=== PATIENT | female | born 1965 | race Caucasian/White ===

== ENCOUNTER 2017-06-21 12:32 | Emergency (ER) | payer OTHER ==
[2017-06-21] MEDS ORDERED: fentaNYL 100 MCG/2 ML INJ IVP ONE (12:54)
[2017-06-21] MEDS ORDERED: ONDANSETRON 4 MG/2 ML VIAL IVP ONE (12:55)
--- NOTE | 2017-06-21 13:34 | CPEKG ---
Heart Rate: 74 RR Interval: 811 P-R Interval: 148 QRSD Interval: 86 QT Interval: 444 QTC Interval: 493 P Caret: 46 QRS Caret: 61 T Wave Caret: 29 EKG Severity - BORDERLINE ECG - EKG Impression: SINUS RHYTHM EKG Impression: BORDERLINE R WAVE PROGRESSION, ANTERIOR LEADS EKG Impression: BORDERLINE PROLONGED QT INTERVAL Electronically Signed By: Adarsh Webb 23-Jun-2017 15:32:10
[2017-06-21] MEDS ORDERED: HYDROmorphONE/DILAUDID 1 MG/ML SYR IVP ONE ×3 (13:36→17:56)
[2017-06-21] MEDS ORDERED: NS 1,000 ML IV ONE (13:36)
--- NOTE | 2017-06-21 13:44 | EDPHY ---
H & P Stated Complaint: Slammed in horse trailer by horse;deformity to R wrist w/ deficit Source: Patient, Family Exam Limitations: No limitations - Personal History LMP (Females 10-55): Post Menopausal Current Tetanus Diphtheria and Acellular Pertussis (TDAP): Yes - Medical/Surgical History Other PMH: healthy per pt - Social History Smoking Status: Never smoked HPI/ROS: CHIEF COMPLAINT: Slammed by horse, sternal pain, wrist pain, headache HISTORY OF PRESENT ILLNESS: Patient was in a horse trailer when the horse was startled. The horse slammed her against the trailer. She struck her head and her chest. She also struck her wrist. She is not entirely sure what happened to the wrist. She has severe pain in the right wrist. Mild headache. Moderate pain in the sternum. The pain of the sternum is worse with any kind of palpation or inspiration. The pain in the wrist is severe and unable to move her bear weight. The headache is minimal. No neck pain. No abdominal pain. No back pain. No injury to the left arm or either leg. No other associated complaints or modifying factors. REVIEW OF SYSTEMS: Ten systems reviewed and are negative unless otherwise noted in the HPI PAST MEDICAL HISTORY: Orthopedic injuries as reviewed. SOCIAL HISTORY: Nonsmoker. FAMILY HISTORY: Noncontributory EXAMINATION General Appearance: Alert, no distress Head: normocephalic. Superficial hematoma over the occiput. No lacerations. No ecchymosis. No raccoon eyes. No Lane sign. Eyes: Pupils equal and round, no conjunctival pallor or injection. EOMs intact. ENT, Mouth: Mucous membranes moist. Airway widely patent Neck: Normal inspection, supple, non-tender. No crepitus, step-off or deformity. Painless range of motion all planes Respiratory: Lungs are clear to auscultation. No wheezing, rhonchi or crackles Cardiovascular: Regular rate and rhythm. No murmur. Pulses intact distally. Gastrointestinal: Abdomen is soft and nontender Back: non-tender, no bony abnormalities Neurological: GCS 15. A&O, nonfocal, normal gait Skin: Warm and dry, no rash. No lacerations abrasions or contusions. Extremities: Deformity of the right wrist consistent with dinner fork deformity. Severe tenderness of the wrist over the distal radius. No tenderness of the right fingers or hand. No tenderness over the midshaft of the forearm of the right elbow. No tenderness of the right shoulder. Range of motion unable to test in the right wrist due to pain and deformity. Range of motion of the right elbow or shoulder intact. Neurovascular intact distal to the injury with symmetric sensation of the radial, median and ulnar distributions. Psychiatric: Mood and affect normal DIFFERENTIAL DIAGNOSES: Including but not limited to wrist fracture, sprain, strain, hematoma, closed head injury, sternal fracture, pneumothorax, hemothorax, rib fracture MDM: 1:30 p.m. Blood trauma with sternal pain right wrist pain and deformity. Obvious fracture of the right wrist. No outward signs of trauma on the chest but I have already ordered CT scan of the chest to rule out sternal fracture or mediastinal hematoma. She is in no acute distress vital signs stable. CT scan of the head has also been ordered. Dr. Mccoy has reviewed the x-ray. He has instructed us to not perform any attempted close reduction. He has instructed us to splint the extremity and she will need surgical intervention. 2:10 p.m. I have administered a to hematoma block to the right wrist. She is feeling significantly better. CT scan of the chest is pending. Splint is currently being placed. 2:30 p.m. Patient has a sugar-tong splint in place. I did participate in the splinting. She is neurovascular intact post splinting, but she reports ongoing severe pain. Proceed with CT scan of the chest. 3:05 p.m. Patient returns from CT scan. She is now complaining of worsening pain in the right hand. This primarily over the base the hand medial aspect. I will consult orthopedist. 3:09 p.m. Contacted by radiologist. CT scan of the head is unremarkable. CT scan of the chest is pending. 3:20 p.m. Notified by radiologist. CT scan of the chest reveals a nondisplaced left- sided 2nd rib fracture. No underlying pathology of the lung. There is no definite sternal fracture. No abnormality of the mediastinum. 3:30 p.m. I discussed the case with Dr. Mccoy. Informed him of the patient' s complaint of pain in the location of the pain. He is requesting an MRI of the wrist. The patient has consented to this. Plan for his evaluation of the patient following the MRI. 4:40 p.m. I discussed the case with Dr. Rivera. I have checked the patient out to him. He will assume care of the patient at this time. At this time she is neurovascular intact but in moderate amount of pain. MRI is pending. Procedure: Hematoma block Indication: Right distal radius fracture Consent: Verbal Description: Posterior aspect of the right distal wrist was prepped with chlorhexidine. 27 gauge was advanced to the point of hematoma. 7 cc of 1% lidocaine plain was infused. Tolerated well. No complication. SUPERVISION: Patient was evaluated in conjunction with the supervising physician. Please see their note for details. (Carmine Jose) Constitutional: Initial Vital Signs Temperature (C) 98.1 F 06/21/17 12:38 Heart Rate 80 06/21/17 12:38 Respiratory Rate 20 06/21/17 12:38 Blood Pressure 119/69 06/21/17 12:38 O2 Sat (%) 94 06/21/17 12:38 O2 Delivery Mode Room Air Allergies/Adverse Reactions: No Known Allergies Allergy (Verified 06/21/17 12:36) Home Medications: Medication Instructions Recorded Cyclobenzaprine [Flexeril 10 MG 10 mg PO TID PRN #15 tab 06/21/17 (*)] oxyCODONE HCL [Oxycodone HCl] 5 - 10 mg PO Q4H PRN #20 tablet 06/21/17 oxyCODONE HCL/ACETAMINOPHEN 1 each PO Q4-6PRN PRN #20 tablet 06/21/17 [Percocet 5-325 mg Tablet] Medical Decision Making Other Provider: Patient was evaluated by Dr. Mccoy in the ED who reviewed her MRI and examined patient at bedside. He feels the patient is comfortable to be sent home with oral pain meds and he will follow her as an outpatient. (Jon Rivera) - Data Points Laboratory Results: Laboratory Results 06/21/17 12:59 06/21/17 12:59 Medications Given: Discontinued Medications Fentanyl (Sublimaze) 100 mcg IVP EDNOW ONE Stop: 06/21/17 12:55 Last Admin: 06/21/17 13:02 Dose: 100 mcg Hydromorphone HCl (Dilaudid) 1 mg IVP EDNOW ONE Stop: 06/21/17 13:37 Last Admin: 06/21/17 13:47 Dose: 1 mg Hydromorphone HCl (Dilaudid) 1 mg IVP EDNOW ONE Stop: 06/21/17 15:06 Last Admin: 06/21/17 15:09 Dose: 1 mg Hydromorphone HCl (Dilaudid) 1 mg IVP EDNOW ONE Stop: 06/21/17 17:57 Last Admin: 06/21/17 17:59 Dose: 1 mg Sodium Chloride (Ns) 1,000 mls @ 0 mls/hr IV ONCE ONE; Wide Open PRN Reason: Protocol Stop: 06/21/17 13:37 Last Admin: 06/21/17 13:47 Dose: 1,000 mls Ondansetron HCl (Zofran) 4 mg IVP EDNOW ONE Stop: 06/21/17 12:56 Last Admin: 06/21/17 13:02 Dose: 4 mg Departure - Departure Disposition: Home, Routine, Self-Care Clinical Impression: Fracture of distal end of right radius Qualifiers: Encounter type: initial encounter Fracture type: closed Fracture morphology: other intra-articular Qualified Code(s): S52.571A - Other intraarticular fracture of lower end of right radius, initial encounter for closed fracture Scalp hematoma Qualifiers: Encounter type: initial encounter Qualified Code(s): S00.03XA - Contusion of scalp, initial encounter Rib fracture Qualifiers: Encounter type: initial encounter Rib fracture type: single rib Fracture type: closed Laterality: left Qualified Code(s): S22.32XA - Fracture of one rib, left side, initial encounter for closed fracture Condition: Good Instructions: Wrist Fracture in Adults (ED), Rib Fracture (ED) Referrals: Brooke Maki PA [Primary Care Provider] - As per Instructions Paulino Mccoy MD [Medical Doctor] - As per Instructions Prescriptions: Cyclobenzaprine [Flexeril 10 MG (*)] 10 mg PO TID PRN #15 tab PRN Reason: Spasms oxyCODONE HCL [Oxycodone HCl] 5 - 10 mg PO Q4H PRN #20 tablet PRN Reason: Pain, Severe oxyCODONE HCL/ACETAMINOPHEN [Percocet 5-325 mg Tablet] 1 each PO Q4-6PRN PRN # 20 tablet PRN Reason: Pain, Breakthrough
[2017-06-21 13:51] LABS: HEMATOCRIT 42.1 % (38.0-47.0); HEMOGLOBIN 14.6 g/dL (12.6-16.3); MEAN CELL HEMOGLOBIN CONCENTR. 34.7 g/dL (32.4-36.7); MEAN CELL VOLUME 98.1 fL (81.5-99.8); RED BLOOD CELL COUNT 4.29 10^6/uL (4.18-5.33); RED CELL DISTRIBUTION WIDTH 11.6 % (11.5-15.2)
[2017-06-21] MEDS ORDERED: IOPAMIDOL (ISOVUE-300) 100 ML BTL ONE (13:53)
[2017-06-21 14:00] LABS: ANION GAP 14 mEq/L (8-16); CARBON DIOXIDE 23 mEq/l (22-31); CHLORIDE 100 mEq/L (97-110); GLOMERULAR FILTRATION RATE 59; GLUCOSE 112 mg/dL (70-100); INR 1.06 (0.83-1.16); POTASSIUM 3.8 mEq/L (3.5-5.2); PROTIME(PATIENT) 13.7 SEC (12.0-15.0); SODIUM 137 mEq/L (134-144)
[2017-06-21 14:01] LABS: APTT 24.1 SEC (23.0-38.0)
[2017-06-21 18:52] VITALS: BP 119/64; PULSE 74; RESP 18; TEMP 97.9; O2SAT 94
== END 2017-06-21 18:52 | disposition home or self-care (01) ==
PROC: 3E0T3CZ (ICD-10-PCS; principal; 2017-06-21)
DX: S52.571A Other intraarticular fracture of lower end of right radius, initial encounter for closed fracture (principal); S22.32XA Fracture of one rib, left side, initial encounter for closed fracture; S00.03XA Contusion of scalp, initial encounter; E86.9 Volume depletion, unspecified; W55.12XA Struck by horse, initial encounter; Y93.89 Activity, other specified
CPT/HCPCS: 82947-QW; 96374; J1170; J2405; J3010; Q9967